=== PATIENT | female | born 1965 | race Caucasian/White ===

== ENCOUNTER 2024-10-09 12:08 | Emergency (ER) | payer OTHER ==
[~2024-10-09] VITALS: Ht 144.8 cm; Wt 45.4 kg
[2024-10-09 12:20] VITALS: BP 128/88; TEMP 98.2
[2024-10-09 13:18] VITALS: O2SAT 98
== END 2024-10-09 13:19 | disposition home or self-care (01) ==
LOC: ER 12:15
DX: S20.219A Contusion of unspecified front wall of thorax, initial encounter (principal); I10 Essential (primary) hypertension; F10.129 Alcohol abuse with intoxication, unspecified; Z88.5 Allergy status to narcotic agent; V43.52XA Car driver injured in collision with other type car in traffic accident, initial encounter; Y93.89 Activity, other specified; Y92.488 Other paved roadways as the place of occurrence of the external cause; Y99.8 Other external cause status